=== PATIENT | female | born 1930 | race African-American/Black ===

== ENCOUNTER 2016-11-06 13:06 | Inpatient (IN) | payer MEDICARE, BC ==
[~2016-11-06] VITALS: Ht 152.4 cm; Wt 41.0 kg
[~2016-11-06 13:06] MED LIST: ALTACE2.5 MG PO; ALTACE5 M1 PO; ASPIRIN CHEWABL81 MG OR; ASPIRIN EC81 MG PO; BUSPAR5 MG PO; BUSPIRONE10 M1 OR; CARAFATE OR; CIPRO500 MG PO; COMBIVENT RESPIMAT IN; HYDROCHLORO25 MG/TAB PO; HYDROCO/APAP1 TA9 PO; METHOCARBAMOL500 MG PO; METO25TAB PO; METOPROL TAR25 MG PO; METOPROLOL SUCC50 MG OR; NEXIUM40 M1 PO; PRAVACHOL40 MG PO; PRAVASTATIN40 MG PO; RAMIPRIL2.5 MG PO; ROBITUSSIN AC10 ML PO; VITAMIN D2000 UNI1 OR
--- NOTE | 2016-11-06 13:07 | NUR ---
PT IMMEDIATELY TO ROOM 9 VIA WC. PT PLACED ON MONITOR. DR HERNANDEZ TO BEDSIDE.
[2016-11-06 14:03] LABS: HEMATOCRIT 41.3 % (37.0-47.0); HEMOGLOBIN 13.5 g/dl (12.0-16.0); IMMATURE GRANULOCYTES 0.6 % (0.0-1.0); MEAN CELL VOLUME 94.3 fL CALC (80.0-100.0); MEAN CORPUSCULAR HGB 30.8 pG CALC (26.0-32.0); MEAN CORPUSCULAR HGB CONC 32.7 g/L CALC (32.0-36.0); NEUT# 8.06 thou/uL (2.00-7.15); RED BLOOD COUNT 4.38 mill/uL (4.20-5.60)
[2016-11-06 14:12] LABS: PROTHROMBIN TIME 11.4 SECONDS (9.0-12.5)
[2016-11-06 14:15] LABS: ALBUMIN 4.3 g/dL (3.2-5.0); ALKALINE PHOSPHATASE 86 u/l (38-126); ANION GAP 17 (6-22 (CALC)); BILIRUBIN, TOTAL 0.9 mg/dL (0.0-1.4); BUN 24 mg/dL (8-23); BUN/CREATININE RATIO 20 (12-20 (CALC)); CALCIUM 10.5 mg/dL (8.4-10.2); CARBON DIOXIDE 34 mmol/l (22-30); CHLORIDE 94 mmol/l (95-108); CREATININE 1.2 mg/dL (0.5-1.0); GFR 42 ML/MIN (>=60 (CALC)); GFR FOR AFR.AMER. 51 ML/MIN (>=60 (CALC)); GLUCOSE 121 mg/dL (82-115); POTASSIUM 4.3 mmol/l (3.5-5.1); SGOT/AST 38 u/l (9-36); SGPT/ALT 31 u/l (11-66); SODIUM 140 mmol/l (137-146); TOTAL PROTEIN 9.3 g/dL (6.3-8.2)
[2016-11-06 14:26] LABS: MYOGLOBIN 78 ng/mL (0 - 62)
--- NOTE | 2016-11-06 14:30 | NUR ---
PT MEETS [facility] PER LACTIC ACID LEVEL. DR HERNANDEZ NOTIFIED, NO FURTHER ORDERS GIVEN AT THIS TIME.
--- NOTE | 2016-11-06 14:40 | NUR ---
PT MEDICATED FOR FEVER ORDERED. BP TRENDING DOWN, DR HERNANDEZ NOTIFIED.
--- NOTE | 2016-11-06 15:36 | NUR ---
REPEAT LACTIC ACID DRAWN
[2016-11-06] MEDS ORDERED: ADVAIR DISK1 IN (15:42)
--- NOTE | 2016-11-06 16:10 | NUR ---
IV ABX INITIATED ORDERED. TEMP RECHECK 99.8
--- NOTE | 2016-11-06 17:15 | NUR ---
ADVISED PT OF EXTENDED WAIT TIME DUE TO BUSY WITH CRITICAL PT. PT GIVEN BOOST PROTEIN SHAKE. PT DENIES COMPLAINTS.
--- NOTE | 2016-11-06 18:33 | NUR ---
REPORT PROVIDED TO RAUL SANCHEZ
--- NOTE | 2016-11-06 18:45 | NUR ---
RECEIVED FROM ER VIA STRETCHER ACCOMPANIED BY ER STAFF, AMBULATING TO STANDING SCALE WITH ASSISTANCE X1, WEAK GAIT. A/O X3, RESPIRATIONS EVEN AND UNLABORED ON O2 @2L VIA NC, VANCOMYCIN INFUSING TO RAC WITH NO COMPLICATIONS. ORIENTED TO BED CONTROLS AND CALL LIGHT FOR ASSISTANCE, WILL CONTINUE TO MONITOR.
[2016-11-06 19:34] VITALS: BP 139/82
--- NOTE | 2016-11-06 21:00 | NUR ---
RECEIVED FROM ER VIA STRETCHER ACCOMPANIED BY ER STAFF, AMBULATING TO STANDING SCALE WITH ASSISTANCE X1, WEAK GAIT. A/O X3, RESPIRATIONS EVEN AND UNLABORED ON O2 @2L VIA NC, AZITHROMYCIN INFUSING TO RAC WITH NO COMPLICATIONS. ORIENTED TO BED CONTROLS AND CALL LIGHT FOR ASSISTANCE, WILL CONTINUE TO MONITOR.
[2016-11-06 22:20] LABS: URINE BILIRUBIN - DIPSTICK NEGATIVE (NEGATIVE); URINE BLOOD DIPSTICK TRACE-INTACT (NEGATIVE); URINE CLARITY CLEAR; URINE COLOR YELLOW; URINE GLUCOSE - DIPSTICK NEGATIVE (NEGATIVE); URINE KETONE NEGATIVE (NEGATIVE); URINE LEUK ESTERASE TRACE (NEGATIVE); URINE NITRITE - DIPSTICK NEGATIVE (Negative); URINE PROTEIN - DIPSTICK 30 mg/dL (NEG-TRACE); URINE UROBILINOGEN - DIPSTICK 0.2 E.U./dL (0.2)
[2016-11-06 22:28] LABS: URINE RBC 0-2 RBC/hpf (0-5)
[2016-11-06 22:29] LABS: URINE SQUAMOUS EPITHELIAL CELL FEW EPI/hpf (0-FEW)
[2016-11-07] VITALS (7 sets, daily range): BP systolic 99–123; BP diastolic 60–74
--- NOTE | 2016-11-07 00:53 | NUR ---
MEDICATED WITH TYLENOL 650MG PO FOR TEMP 100.5.
[2016-11-07 05:43] LABS: HEMATOCRIT 43.1 % (37.0-47.0); HEMOGLOBIN 13.9 g/dl (12.0-16.0); IMMATURE GRANULOCYTES 1.2 % (0.0-1.0); MEAN CELL VOLUME 94.7 fL CALC (80.0-100.0); MEAN CORPUSCULAR HGB 30.5 pG CALC (26.0-32.0); MEAN CORPUSCULAR HGB CONC 32.3 g/L CALC (32.0-36.0); NEUT# 8.2 thou/uL (2.00-7.15); RED BLOOD COUNT 4.55 mill/uL (4.20-5.60); RED CELL DISTRI WIDTH 11.9 % (11.5-15.5)
[2016-11-07 06:08] LABS: CALCIUM 9.8 mg/dL (8.4-10.2); CREATININE 1.1 mg/dL (0.5-1.0)
[2016-11-07 06:11] LABS: POTASSIUM 5.2 mmol/l (3.5-5.1)
--- NOTE | 2016-11-07 08:20 | NUR ---
ASSESSMENT IS COMPLTED: IV SITE IS FREE FROM REDNESS OR EDEMA. BREATH SOUNDS ARE WHEEZING AND COARSE. TELE MONITOR IN PLACE.
--- NOTE | 2016-11-07 10:12 | NUR ---
PT AMBULATED TO THE BATHROOM, NO DISTRESS NOTED. PT HAS BEEN SWEATING. WILL WAIT FOR DAUGHTER TO COME AND BRING CLOTHES TO SHOWER AND CHANGE.
--- NOTE | 2016-11-07 11:27 | NUR ---
FAMILY IN WITH PT AND NOW PT IS GETTING A SHOWER.
--- NOTE | 2016-11-07 12:18 | NUR ---
PT IS RELAXING IN BED FAMILY IN THE ROOM COMPLETED SHOWER IV SITE IS FREE FROM REDNESS OR EDEMA. TELE MONITOR IN PLACE.
--- NOTE | 2016-11-07 16:27 | NUR ---
PT HAS AMBULTED TO THE BATHROOM. NO DISTRESS NOTED. IV SITE IS FREE FROM REDNESS OR EDEMA.
--- NOTE | 2016-11-07 16:45 | NUR ---
PT IS SITTING UP IN THE BED WITH NO DISTRESS NOTED. IV SITE IS FREE FROM REDNESS OR EDEMA.
--- NOTE | 2016-11-07 20:10 | NUR ---
PT. RESTING IN BED WITH NO DISTRESS NOTED. ASSESSMENT COMPLETED. IV SITE PATENT AND INFUSING ORDERED NS @[facility] PER ORDER. DENIES PAIN. PT. ASSISTED UP TO THE BSC AND ASSISTED BACK TO BED WITH MINIMAL ASSIST. ENCOURAGED TO CALL FORA ANY NEEDS. CALL LIGHT IS IN REACH. WILL CONTINUE TO MONITOR.
--- NOTE | 2016-11-07 23:53 | NUR ---
PT. RESTING IN BED WITH NO DISTRESS NOTED. VS OBTAINED BY ADA CRUZ. CALL LIGHT IS IN REACH.
--- NOTE | 2016-11-08 04:56 | NUR ---
PT. RESTING IN BED WITH NO DISTRESS NOTED. DENIES NEEDS/PAIN. SCHEDULED HEPARIN GIVEN. PO FLUIDS OFFERED. CALL LIGHT IS IN REACH.
[2016-11-08 05:07] LABS: HEMATOCRIT 37.8 % (37.0-47.0); HEMOGLOBIN 12.4 g/dl (12.0-16.0); IMMATURE GRANULOCYTES 1.3 % (0.0-1.0); MEAN CELL VOLUME 95.5 fL CALC (80.0-100.0); MEAN CORPUSCULAR HGB 31.3 pG CALC (26.0-32.0); MEAN CORPUSCULAR HGB CONC 32.8 g/L CALC (32.0-36.0); NEUT# 19.12 thou/uL (2.00-7.15); RED BLOOD COUNT 3.96 mill/uL (4.20-5.60)
[2016-11-08 05:45] LABS: BUN 28 mg/dL (8-23); BUN/CREATININE RATIO 30 (12-20 (CALC)); CALCIUM 9.8 mg/dL (8.4-10.2); CARBON DIOXIDE 31 mmol/l (22-30); CHLORIDE 100 mmol/l (95-108); CREATININE 0.9 mg/dL (0.5-1.0); GFR 59 ML/MIN (>=60 (CALC)); GFR FOR AFR.AMER. > 60 ML/MIN (>=60 (CALC)); GLUCOSE 117 mg/dL (82-115); SODIUM 141 mmol/l (137-146)
[2016-11-08 05:47] LABS: ANION GAP 15 (6-22 (CALC)); POTASSIUM 5.3 mmol/l (3.5-5.1)
[2016-11-08 06:13] VITALS: BP 127/82
[2016-11-08 07:50] VITALS: BP 132/74
--- NOTE | 2016-11-08 07:50 | NUR ---
ASSESSMENT IS COMPLETED: IV SITE IS FREE FROM REDNESS OR EDEMA. TELE MONITOR IN PLACE. WHEEZING AND COARSE NOTED. PT IS STRONGER TODAY. CONTINUE TO OSBERVE AND MONITOR.
--- NOTE | 2016-11-08 09:30 | NUR ---
PT DECLINED NEB TX TO TAKE A SHOWER.
[2016-11-08 12:00] VITALS: BP 119/65
--- NOTE | 2016-11-08 12:30 | NUR ---
PT IS RELAXING IN THE CHAIR. NO DISTRESS NOTED. IV SITE IS FREE FROM REDNESS OR EDEMA.
--- NOTE | 2016-11-08 14:37 | NUR ---
AMBULATED TO THE BATHROOM. CHECKED HER O2 SATURATION IS 98% ON RA THEN AMBULATED TO THE BED REMAINS AT 98% ON RA.
[2016-11-08 16:00] VITALS: BP 128/66
--- NOTE | 2016-11-08 16:30 | NUR ---
PT IS RELAXING IN BED WITH NO DISTRESS NOTED. IV SITE IS FREE FROM REDNESS OR EDEMA.
[2016-11-08 19:00] VITALS: BP 102/59
--- NOTE | 2016-11-08 20:25 | NUR ---
PT. SITTING UP IN BED WITH NO DISTRESS NOTED. DENIES NEEDS/PAIN. ASSESSMENT COMPLETED. IV SITE PATENT TO RFA AND INFUSING ORDERED 1/2 NS @[facility] PER ORDER. SCHED MEDS GIVEN AT THIS TIME. PT. REMAINS ON RA AND SPO2 98%. PT. INSTRUCTED TO CALL FOR ANY NEEDS. CALL LIGHT IS IN REACH. WILL CONTINUE TO MONITOR.
--- NOTE | 2016-11-08 23:03 | NUR ---
PT. RESTING IN BED WITH EYES CLOSED, NO DISTRESS NOTED. RESP EVEN AND UNLABORED. CALL LIGHT IS IN REACH. WILL CONTINUE TO MONITOR.
[2016-11-09 00:15] VITALS: BP 117/60
--- NOTE | 2016-11-09 01:00 | NUR ---
PT. RESTING IN BED WITH NO DISTRESS NOTED. EYES CLOSED. CALL LIGHT IS IN REACH.
[2016-11-09 05:01] VITALS: BP 119/79
--- NOTE | 2016-11-09 05:01 | NUR ---
PT. RESTING IN BED WITH NO DISTRESS NOTED. DENIES NEEDS/PAIN. VS OBTAINED. SCHED HEPARIN GIVEN. FRESH WATER GIVEN. CALL LIGHT IS IN REACH. WILL CONTINUE TO MONITOR.
[2016-11-09 05:48] LABS: HEMATOCRIT 34.7 % (37.0-47.0); HEMOGLOBIN 11.5 g/dl (12.0-16.0); IMMATURE GRANULOCYTES 2.7 % (0.0-1.0); MEAN CELL VOLUME 95.9 fL CALC (80.0-100.0); MEAN CORPUSCULAR HGB 31.8 pG CALC (26.0-32.0); MEAN CORPUSCULAR HGB CONC 33.1 g/L CALC (32.0-36.0); NEUT# 17.31 thou/uL (2.00-7.15); RED BLOOD COUNT 3.62 mill/uL (4.20-5.60); RED CELL DISTRI WIDTH 12.4 % (11.5-15.5)
[2016-11-09 06:53] LABS: ANION GAP 14 (6-22 (CALC)); BUN 33 mg/dL (8-23); BUN/CREATININE RATIO 34 (12-20 (CALC)); CALCIUM 9.6 mg/dL (8.4-10.2); CARBON DIOXIDE 30 mmol/l (22-30); CHLORIDE 102 mmol/l (95-108); GFR 52 ML/MIN (>=60 (CALC)); GFR FOR AFR.AMER. > 60 ML/MIN (>=60 (CALC)); GLUCOSE 133 mg/dL (82-115); POTASSIUM 4.8 mmol/l (3.5-5.1); SODIUM 141 mmol/l (137-146)
[2016-11-09 08:05] VITALS: BP 128/68
--- NOTE | 2016-11-09 08:05 | NUR ---
ASSESSMENT IS COMPLETED: IV SITE IS FREE FROM REDNESS OR EDEMA. TELE MONITOR IN PLACE. CONTINUE TO OBSERVE AND MONITOR.
[2016-11-09 09:25] VITALS: BP 128/63
[2016-11-09] MEDS ORDERED: FLORASTOR250 M1 PO (09:48)
[2016-11-09] MEDS ORDERED: PREDNISONE10 MG PO (09:48)
[2016-11-09] MEDS ORDERED: IPRATROPIU0.5 MG/3 M IN (09:48)
[2016-11-09] MEDS ORDERED: LEVAQUIN750 MG PO (09:53)
[2016-11-09] MEDS ORDERED: NEBULIZER COMPRESSOR (09:53)
--- NOTE | 2016-11-09 09:56 | NUR ---
Pt seen this am for ther ex and gait. Pt ambulated 2x60' pushing IV pole with [employer] and CGA non skid socks and gait belt in place. She performed 20 reps of sitting ex. O2 sat 92 at rest desat to 88 and return to 93 with rest. Pt reminded to have assist with mobility activities. (25 min).
--- NOTE | 2016-11-09 12:00 | NUR ---
PT HAS BEEN IN THE BED AND THEN IN THE CHAIR NO DISTRESS NOTED. IV SITE IS FREE FROM REDNESS OR EDEMA. TELE MONITOR IN PLACE.
--- NOTE | 2016-11-09 13:40 | NUR ---
PT RECEIVED DISCHARGE INSTRUCTIONS VERBALIZED UNDERSTANDING. IV SITE DISCONTINUED. CATHETER INTACT. FAMILY IN THE ROOM. CONTINUE TOOSBERVE AND MONITOR.
== END 2016-11-09 13:15 | DRG 190 ==
LOC: ENPENDDIS → ED 13:06 → ED-I 15:48 → ED 16:28 → MS2 16:29
PROVIDERS: Emergency Medicine; ADMIT Internal Medicine; ATTEND Internal Medicine
DX: J44.1 Chronic obstructive pulmonary disease with (acute) exacerbation (principal); J18.9 Pneumonia, unspecified organism; N17.9 Acute kidney failure, unspecified; I48.91 Unspecified atrial fibrillation; Z99.81 Dependence on supplemental oxygen; E87.5 Hyperkalemia; J44.0 Chronic obstructive pulmonary disease with (acute) lower respiratory infection; I10 Essential (primary) hypertension; K21.9 Gastro-esophageal reflux disease without esophagitis; E78.5 Hyperlipidemia, unspecified
CPT/HCPCS: J1650

== ENCOUNTER → 2018-10-06 | Outpatient (REF) | payer MEDICARE, BC ==
[~2018-10-06] MED LIST changes: +ADVAIR DISK1 IN; +FLORASTOR250 M1 PO; +IPRATROPIU0.5 MG/3 M IN; +LEVAQUIN750 MG PO; +NEBULIZER COMPRESSOR; +PREDNISONE10 MG PO
== END | disposition home or self-care (01) ==
LOC: DI 11:38
PROVIDERS: ATTEND Internal Medicine Pulmonary Disease
DX: R06.02 Shortness of breath (principal)